=== PATIENT | male | born 1980 | race African-American/Black ===

== ENCOUNTER 2017-04-04 13:35 | Emergency (ER) | payer SELFPAY ==
[~2017-04-04] VITALS: Ht 175.3 cm; Wt 85.0 kg
[2017-04-04 16:00] VITALS: BP 150/80
== END 2017-04-04 17:02 | disposition home or self-care (01) ==
LOC: EDSEX 13:36 → ER 13:36
DX: S20.219A Contusion of unspecified front wall of thorax, initial encounter (principal); S39.012A Strain of muscle, fascia and tendon of lower back, initial encounter; V49.49XA Driver injured in collision with other motor vehicles in traffic accident, initial encounter; Y93.89 Activity, other specified; Y92.411 Interstate highway as the place of occurrence of the external cause; R03.0 Elevated blood-pressure reading, without diagnosis of hypertension
CPT/HCPCS: 71010; 99283